=== PATIENT | male | born 1975 | race American Indian/Alaskan Native ===

== ENCOUNTER 2016-11-02 07:34 | Day surgery (SDC) | payer OTHER ==
[2016-11-02] MEDS ORDERED: ECOTRIN PO ONE (07:56)
[2016-11-02] MEDS ORDERED: NACL 0.9% 500 ML 500 ML IV SCH (08:00)
[2016-11-02 08:40] LABS: Basophils % (Auto) 0.6 % (0.0-1.8); Eosinophils % (Auto) 4.2 % (0.0-4.3); Hematocrit 38.9 % (35.5-45.6); Hemoglobin 12.8 gm/dl (11.8-15.2); Mean Corpuscular HGB Conc 33 % (32-34); Mean Corpuscular Hemoglobin 29 pg (28-32); Mean Corpuscular Volume 87 fl (84-94); Platelet Count 210 K/mm3 (140-440); Red Blood Count 4.49 M/mm3 (3.65-5.03); Red Cell Distribution Width 13.2 % (13.2-15.2); White Blood Count 5.5 K/mm3 (4.5-11.0)
[2016-11-02 08:51] LABS: INR 1.01 (0.87-1.13)
[2016-11-02 09:00] LABS: Anion Gap 15 mmol/L; BUN/Creatinine Ratio 17.14; Blood Urea Nitrogen 12 mg/dL (9-20); Calcium 8.4 mg/dL (8.4-10.2); Carbon Dioxide 24 mmol/L (22-30); Chloride 104.7 mmol/L (98-107); Glucose 108 mg/dL (75-100); Potassium 3.5 mmol/L (3.6-5.0); Sodium 140 mmol/L (137-145)
[2016-11-02] MEDS ORDERED: HEPARIN/NS 5000 UNIT/500ML(CATH LAB) 1,000 ML IR ONE (10:10)
[2016-11-02] MEDS ORDERED: CALAN ONE (10:10)
[2016-11-02] MEDS ORDERED: HEPARIN 10,000 UNITS/10 ML ONE (10:10)
[2016-11-02] MEDS ORDERED: XYLOCAINE 2% INFILTRATI ONE (10:10)
[2016-11-02] MEDS ORDERED: VERSED ONE (10:11)
[2016-11-02] MEDS ORDERED: NITROGLYCERIN SYRINGE 3 ML ONE (10:11)
[2016-11-02] MEDS ORDERED: SUBLIMAZE ONE (10:11)
--- NOTE | 2016-11-02 10:41 | Short Stay Summary ---
Short Stay Documentation Date of service: 11/02/16 - History H&P: obtained from office - Allergies and Medications Current Medications: Allergies soy Allergy (Verified 11/02/16 07:54) Itching Home Medications Medication Instructions Recorded Confirmed Last Taken Type Aspirin EC [Ecotrin] 325 mg PO QDAY 11/02/16 11/02/16 11/02/16 06:30 History Ibuprofen [Motrin] 800 mg PO Q8HR PRN 11/02/16 11/02/16 1 Week Ago History Lisinopril [Lisinopril] 40 mg PO QDAY 11/02/16 11/02/16 11/02/16 06:30 History Metoprolol [Lopressor TAB] 25 mg PO QDAY 11/02/16 11/02/16 11/02/16 06:30 History amLODIPine [Norvasc] 5 mg PO QDAY 11/02/16 11/02/16 11/02/16 06:30 History Active Medications Sodium Chloride (Nacl 0.9% 500 Ml) 500 mls @ 50 mls/hr IV DIRECT SOL Stop: 11/02/16 17:59 Last Admin: 11/02/16 08:39 Dose: 50 mls/hr - Physical exam General appearance: no acute distress Integumentary: no rash HEENT: Atraumatic Lungs: Clear to auscultation Breasts: deferred Heart: Regular rate Gastrointestinal: normal Male Genitourinary: deferred Female Genitourinary: deferred Rectal Exam: deferred Extremities: no ischemia Neurological: Normal gait - Brief post op/procedure progress note Date of procedure: 11/02/16 Pre-op diagnosis: CHest Pain, abnormal MPI Post-op diagnosis: same Procedure: LHC, LV gram Anesthesia: MAC Findings: 20% mid LAD otherwise normal Surgeon: NEMO KUHN Estimated blood loss: none Pathology: none Condition: stable - Hospital course Hospital course: Uneventful - Disposition Condition at discharge: Good Disposition: DISCHARGED TO HOME OR SELFCARE Short Stay Discharge Plan Activity: advance as tolerated Weight Bearing Status: Weight Bear as Tolerated Diet: low fat, low cholesterol, low salt Follow up with: LEANDRO WEEKS MD [Primary Care Provider] - 7 Days
--- NOTE | 2016-11-02 11:01 | Cardiac Catherization Report ---
LEFT HEART CATHETERIZATION ORDERING PHYSICIAN: MALCOLM CARROLL MD INDICATION FOR PROCEDURE: Chest pain, abnormal myocardial perfusion scan. PROCEDURES PERFORMED: 1. Selective left and right coronary angiography. 2. Left ventriculography. DESCRIPTION OF PROCEDURE: After obtaining written consent, the patient was draped using sterile technique. A 2% lidocaine was injected into the right wrist. A 5-[place] vascular sheath was inserted into the right radial artery. A 5-[place] JL 3.5 catheter was used to selectively engage in the left coronary artery. A 5-[place] JR4 catheter was used to selectively engage the right coronary artery. A 5-[place] JR4 catheter was used to perform a hand injected LV gram. No complications occurred during the procedure. ESTIMATED BLOOD LOSS: Minimal. SPECIMEN REMOVED: None. FINDINGS: HEMODYNAMICS: Aortic pressure 129/96, left ventricular systolic pressure is 134 mmHg, and the left ventricular end-diastolic pressure is 19 mmHg. CARDIAC STRUCTURES: The left ventricle is normal in size and systolic function with an ejection fraction estimated at 60%. CORONARY ANATOMY: 1. The left main is angiographically normal. 2. The LAD has a focal 20% stenosis noted in the mid segment, otherwise is angiographically normal. 3. The left circumflex artery is angiographically normal. 4. The right coronary artery is angiographically normal. This is a codominant circulation. IMPRESSION: 1. A 20% focal stenosis of the mid left anterior descending, otherwise angiographically normal, codominant circulation. 2. Normal left ventricular size and systolic function. 3. Left ventricular end-diastolic pressure measured at 19 mmHg. 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 [facility]# [id number] LIZABETH/[place]
[2016-11-02 12:55] VITALS: BP 124/77
== END 2016-11-02 13:15 | disposition home or self-care (01) ==
LOC: OPU 07:34
PROVIDERS: ATTEND Internal Medicine
DX: I25.10 Atherosclerotic heart disease of native coronary artery without angina pectoris (principal); I10 Essential (primary) hypertension; Z79.899 Other long term (current) drug therapy; Z72.89 Other problems related to lifestyle; Z82.49 Family history of ischemic heart disease and other diseases of the circulatory system; Z83.3 Family history of diabetes mellitus; Z82.3 Family history of stroke
CPT/HCPCS: 36415; 80048; 85025; 85610; 85730; 93005; 93010; 93458; C1894; J1644; J2250; J3010; J7040; Q9967